=== PATIENT | female | born 1995 | race Caucasian/White ===

== ENCOUNTER 2017-01-10 15:59 | Emergency (ER) | payer OTHER ==
[2017-01-10] MEDS ORDERED: ONDANSETRON HCL/PF 2 MG/ML VIAL IV ONE (16:24)
[2017-01-10] MEDS ORDERED: DIATRIZOATE MEGLU/DIATRIZO SOD 30 ML BTL PO ONE (16:24)
[2017-01-10] MEDS ORDERED: KETOROLAC TROMETHAMINE 30 MG/ML VIAL IV ONE (16:24)
[2017-01-10 16:25] LABS: Mean Cell Volume 69.4 fl (78-100); Mean Corpuscular Hemoglobin 21.8 pg (27-31); Mean Corpuscular Hgb Conc 31.4 g/dl (32-36); Mean Platelet Volume 10.3 fl (6.0-9.5); Neutrophil # 6.8 K/mm3 (1.3-6.0); Neutrophil % 87.6 % (42-75.0); Platelet Count 177 K/mm3 (150-450); Red Blood Count 5.04 M/mm3 (4.2-5.4); Red Cell Distribution Width 17.6 % (11.5-14.0); White Blood Count 7.8 K/mm3 (4.0-10.5)
[2017-01-10] MEDS ORDERED: KETOROLAC TROMETHAMINE 30 MG/ML VIAL ONE (16:39)
[2017-01-10] MEDS ORDERED: ONDANSETRON HCL/PF 2 MG/ML VIAL ONE (16:39)
[2017-01-10] MEDS ORDERED: NORMAL SALINE 1,000 ML IV ONE (16:39)
[2017-01-10] MEDS ORDERED: DIATRIZOATE MEGLU/DIATRIZO SOD 30 ML BTL ONE (16:40)
[2017-01-10 16:41] LABS: Albumin * 3.8 gm/dl (3.4-5.0); Anion Gap 12.7 mmol/L (6.8-13.8); BUN/Creatinine Ratio 13.5 (9.0-21.6); Bilirubin, Total 1.1 mg/dL (0.0-1.1); Ca. Corrected For Albumin 8.5 mg/dL (8.4-10.2); Calcium * 8.7 mg/dL (7.9-10.9); Carbon Dioxide 27.2 mmol/L (24-32.6); Potassium 3.9 mmol/L (3.4-4.6); Total Protein 7.6 gm/dL (6.2-8.2)
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
--- OUTSIDE RECORDS SUMMARY | 2017-01-10 16:46 | XMS REPORT | Continuity of Care Document ---
:1995 Author Organization [facility] ([facility]) [place] [address] Phone [phone] Care Team Providers Name Role Phone Unavailable Primary Care Provider Unavailable Source Comments This disclosure is being made pursuant to the Care Everywhere program, applicable federal and state laws, and may not contain all informaitonavailable regarding this patient.[facility] ([facility]) Active Allergies and Adverse Reactions Not on File Current Medications Not on file Active Problems Not on file Social History Tobacco Use Types Packs/Day Years Used Date Never Assessed Plan of Care Health Maintenance Due Date Last Done Comments Hepatitis B Vaccine (1 of 3 - Primary Series) 1996 HPV Vaccine (1 of 3 - Female/Unknown 3 Dose Series) 2007 Tdap Vaccine 2007 Meningococcal Vaccine (1 of 1) 2012 Lipid Disorder Screening 2014 MMR Vaccine 2014 Td Vaccine 2014 Varicella Vaccine (1 of 2 - Adult - No Evidence of 2014 Immunity) Influenza Vaccine: Seasonal (#1) 03/14/2016 Results from Last 3 Months Not on file
--- OUTSIDE RECORDS SUMMARY | 2017-01-10 16:46 | XMS REPORT | Continuity of Care Document ---
:1995 Author [facility] [place] [address] Phone [phone] Care Team Providers Name Role Phone Solis Rae Primary Care Provider [phone] Active Allergies and Adverse Reactions No Known Allergies Current Medications Always verify current medications with the patient because some medications mayno longer be current as of this document. Prescription Sig. Disp. Refills Start Date End Date Status diphenhydrAMINE Take 25 mg by mouth Active (BENADRYL) 25 MG every 6 hours as capsule needed. ibuprofen (MOTRIN) 600 Take 800 mg by mouth Active MG tablet every 6 hours as needed for Pain. levonorgestrel (MIRENA, 1 Each by Active 52 MG,) 20 MCG/24HR IUD Intrauterine route once. amitriptyline (ELAVIL) Take 50 mg by mouth Active 50 MG tablet nightly. ketorolac (TORADOL) 10 Take 1 Tab by mouth 15 Tab 0 09/22/2016 Active MG tablet every 6 hours as needed for Pain. Active Problems No known active problems Most Recent Encounters Date Type Specialty Providers Description 11/09/2016 Hospital Encounter Lab Encounter for long-term (current) use of other medications; Anxiety state, unspecified 11/09/2016 Orders / Documentation Lab Saray Zapata Dx: Encounter for E, PAC long-term (current) use of other medications (Primary Dx) Social History Tobacco Use Types Packs/Day Years Used Date Never Smoker Smokeless Tobacco: Never Used Alcohol Use Drinks/Week oz/Week Comments Yes 1 Standard drinks or equivalent 0.6 Last Filed Vital Signs Vital Sign Reading Time Taken Blood Pressure 124/68 09/22/2016 2:54 AM [employer] Pulse 84 09/22/2016 2:54 AM [employer] Temperature 36.8 C (98.3 F) 09/21/2016 10:43 PM [employer] Respiratory Rate 16 09/22/2016 2:54 AM [employer] Height 1.702 m (5' 7") 09/21/2016 10:43 PM [employer] Weight 89.676 kg (197 lb 11.2 oz) 09/21/2016 10:43 PM [employer] Body Mass Index 30.96 09/21/2016 10:43 PM [employer] Oxygen Saturation 99% 09/22/2016 2:54 AM [employer] Plan of Care Health Maintenance Due Date Last Done Comments [facility] Dtap/Tdap/Td Vaccines (1 - Tdap) 2015 [facility] Lipid Disorder Screening 2016 [facility] Influenza 03/14/2017 Results from Last 3 Months Vitamin B12 (Cyanocobalamin) (11/09/2016 12:23 PM) Component Value Range Vitamin B12 521 211-911 pg/mL Specimen Blood T4, Free (11/09/2016 12:23 PM) Component Value Range Free T4 1.05 0.89-1.76 ng/dL Specimen Blood TSH (11/09/2016 12:23 PM) Component Value Range TSH 0.76 0.55-4.78 mIU/mL Specimen Blood Comprehensive Metabolic Panel (11/09/2016 12:23 PM) Component Value Range Glucose Result 96 74-100 mg/dL Total Protein 7.9 6.4-8.2 g/dL Albumin (BCP) 4.1 3.4-5.0 g/dL Calcium 9.0 8.5-10.1 mg/dL Alkaline Phosphatase 73 46-116 U/L Bilirubin, Total 1.1(H) 0.0-1.0 mg/dL ALT 41 12-78 U/L AST 33 15-37 U/L BUN 16 7-18 mg/dL Creatinine 0.86 0.55-1.02 mg/dL BUN/Creatinine Ratio 18.6 10.0-20.0 EGFR 89.4 >=60.0 ml/min/1.73m^2 Sodium 139 136-145 mmol/L Potassium 4.1 3.5-5.1 mmol/L Chloride 105 98-107 mmol/L CO2 28 21-32 mmol/L Anion Gap 6 5-15 mmol/L Specimen Blood Narrative Interpretation: The estimated GFR (eGFR) is calculated by the original MDRD equation. If patient is - Cari, multiply by 1.210. *GFR only applies to adults over the age of 18. CBC (11/09/2016 12:23 PM) Component Value Range WBC 5.4 4.5-11.0 x10.e3/uL RBC 4.84 4.00-5.20 x10.e6/uL Hemoglobin 11.0(L) 12.0-16.0 g/dL Hematocrit 35.1 33.0-42.0 % MCV 72.5(L) 80.0-100.0 fL RDW 14.7 11.0-15.5 % Platelets 226 150-400 x10.e3/uL Specimen Blood
[2017-01-10] MEDS ORDERED: MORPHINE SULFATE 4 MG/ML SYRG ONE (17:35)
[2017-01-10 19:20] LABS: Urine Appearance Cloudy; Urine Bilirubin Negative (NEGATIVE); Urine Blood 25 /ul (NEGATIVE); Urine Color Yellow; Urine Ketone Negative (NEGATIVE); Urine Nitrite Positive (NEGATIVE); Urine Protein Negative (NEGATIVE); Urine Specific Gravity 1.015 SP.GR. (1.005-1.010); Urine Urobilinogen Normal (NORMAL)
[2017-01-10 19:21] LABS: Urine Bacteria 4+; Urine RBC 0-5 /hpf (0-5); Urine WBC 0-5 /hpf (0-5)
[2017-01-10] MEDS ORDERED: CIPROFLOXACIN HCL 250 MG TABLET PO ONE (20:11)
[2017-01-10] MEDS ORDERED: CIPROFLOXACIN HCL 250 MG TABLET ONE (20:14)
[2017-01-10] MEDS ORDERED: CIPROFLOXACIN LACTATE/D5W 400 MG/200 ML BAG IV SCH (20:15)
[2017-01-10] MEDS ORDERED: oxyCODONE HCL/ACETAMINOPHEN 1 TAB TABLET PO ONE (20:16)
[2017-01-10] MEDS ORDERED: oxyCODONE HCL/ACETAMINOPHEN 1 TAB TABLET ONE (20:51)
[2017-01-10 21:55] VITALS: BP 103/52
== END 2017-01-10 21:09 | disposition home or self-care (01) ==
LOC: ER 15:59
DX: N12 Tubulo-interstitial nephritis, not specified as acute or chronic (principal); N83.201 Unspecified ovarian cyst, right side
CPT/HCPCS: 36415; 74177; 80053; 81001; 82150; 83605; 83690; 84703; 85025; 87077; 87086; 87186; 96365; 96375; 99284; J2405

== ENCOUNTER 2017-01-12 13:40 | Emergency (ER) | payer OTHER ==
[2017-01-12] MEDS ORDERED: MORPHINE SULFATE 2 MG/ML DISP.SYRIN IV ONE ×2 (14:36→15:55)
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
--- OUTSIDE RECORDS SUMMARY | 2017-01-12 14:42 | XMS REPORT | Continuity of Care Document ---
:1995 Author Organization [facility] ([facility]) Address [place] [address] Phone [phone] Care Team Providers Name Role Phone Unavailable Primary Care Provider Unavailable Source Comments This disclosure is being made pursuant to the Care Everywhere program, applicable federal and state laws, and may not contain all informaitonavailable regarding this patient.[facility] ([facility]) Active Allergies and Adverse Reactions Not on [...]
--- OUTSIDE RECORDS SUMMARY | 2017-01-12 14:42 | XMS REPORT | Continuity of Care Document ---
:1995 Author [facility] [facility] [place] [address] Phone [phone] Care Team Providers Name Role Phone Solis Rae Primary Care Provider [phone] Active Allergies and Adverse Reactions No Known [...] unspecified 11/09/2016 Orders / Documentation Lab Saray Zpaata Dx: Encounter for E, PAC long-term (current) use of other medications (Primary Dx) Social History Tobacco Use Types Packs/Day Years Used Date Never Smoker Smokeless Tobacco: Never Used Alcohol Use Drinks/Week oz/Week Comments Yes 1 Standard drinks or equivalent 0.6 Last Filed Vital Signs Vital Sign Reading Time Taken Blood Pressure 124/68 09/22/2016 2:54 AM [employer] Pulse 84 09/22/2016 2:54 AM [employer] Temperature 36.8 C (98.3 F) 09/21/2016 10:43 PM [employer] Respiratory Rate 16 09/22/2016 2:54 AM [employer] Height 1.702 m (5' 7") 09/21/2016 10:43 PM [employer] Weight 89.676 kg (197 lb 11.2 oz) 09/21/2016 10:43 PM [employer] Body Mass Index 30.96 09/21/2016 10:43 PM [employer] Oxygen Saturation 99% 09/22/2016 2:54 AM [employer] Plan of Care Health Maintenance Due Date Last Done Comments [facility] Dtap/Tdap/Td Vaccines (1 - Tdap) 2015 [facility] Lipid Disorder Screening 2016 [facility] Influenza 03/14/2017 Results from Last 3 Months [...]
[2017-01-12 14:49] LABS: Hematocrit 35.9 % (37.0-47.0); Hemoglobin 11.2 gm/dL (12.5-16.0); Mean Cell Volume 70.1 fl (78-100); Mean Corpuscular Hemoglobin 21.9 pg (27-31); Mean Corpuscular Hgb Conc 31.2 g/dl (32-36); Mean Platelet Volume 10.3 fl (6.0-9.5); Neutrophil # 5.3 K/mm3 (1.3-6.0); Neutrophil % 70.8 % (42-75.0); Platelet Count 179 K/mm3 (150-450); Red Blood Count 5.12 M/mm3 (4.2-5.4); Red Cell Distribution Width 17.6 % (11.5-14.0); White Blood Count 7.5 K/mm3 (4.0-10.5)
[2017-01-12] MEDS ORDERED: MORPHINE SULFATE 2 MG/ML DISP.SYRIN ONE ×2 (15:03→16:27)
[2017-01-12] MEDS ORDERED: DIATRIZOATE MEGLUMINE, SODIUM 30 ML BTL PO ONE (15:26)
[2017-01-12] MEDS ORDERED: DIATRIZOATE MEGLUMINE, SODIUM 30 ML BTL ONE (15:34)
[2017-01-12] MEDS ORDERED: KETOROLAC TROMETHAMINE 30 MG/ML VIAL IV ONE (17:25)
[2017-01-12] MEDS ORDERED: KETOROLAC TROMETHAMINE 30 MG/ML VIAL ONE (17:28)
[2017-01-12 18:07] VITALS: BP 118/71
== END 2017-01-12 18:27 | disposition home or self-care (01) ==
LOC: ER 13:40
DX: N10 Acute pyelonephritis (principal)